=== PATIENT | male | born 1980 | race Caucasian/White ===

== ENCOUNTER 2019-04-07 08:41 | Inpatient (IN) | payer BC ==
[~2019-04-07] VITALS: Ht 175.3 cm; Wt 99.8 kg
[2019-04-07 08:43] VITALS: Ht 175.3 cm; Wt 99.8 kg
--- NOTE | 2019-04-07 08:47 | NUR ---
AGENCY DOCUMENTATION DONE BY Staff Name/Title - : TANVI DUMONT JR/KERVIN REGEN Energy User ID - : [id number] Agency Name - : [employer] Time Documented - From - : 699 To - : 1929
[2019-04-07 09:04] LABS: BASOPHIL % 0.3 % (0-2); PLATELET COUNT 227 x10^3mcL (130-400)
--- NOTE | 2019-04-07 09:07 | NUR ---
ASSUMED PATIENT CARE, NURSING ASSESSMENT COMPLETED. SEEN AND EVALUATED BY ALEX MORROW COMPLETED.
[2019-04-07 09:15] LABS: CALCIUM 8.7 mg/dL (8.5-10.1); CARBON DIOXIDE 29.6 mmol/L (21-32); CHLORIDE SERUM 103 mmol/L (98-107); CREATININE SERUM 1.3 mg/dL (0.7-1.3); GFR1 > 60 mL/min; GLUCOSE SERUM 123 mg/dL (74-106); POTASSIUM SERUM 3.8 mmol/L (3.5-5.1); SODIUM SERUM 141 mmol/L (136-145)
[2019-04-07 09:19] LABS: ALKALINE PHOSPHATASE 84 U/L (46-116); ALT/SGPT 86 U/L (16-63); AST/SGOT 35 U/L (15-37); BILIRUBIN DIRECT 0.14 mg/dL (0.0-0.2); BILIRUBIN TOTAL 0.7 mg/dL (0.20-1.00); LIPASE 120 IU/L (73-393); TOTAL PROTEIN, SERUM 7.6 g/dL (6.4-8.2)
--- NOTE | 2019-04-07 09:33 | NUR ---
URINE SPECIMEN SENT TO LAB.
[2019-04-07 10:10] LABS: UA SPECIFIC GRAVITY >=1.030 (1.005-1.035); microscopic required? YES; urine erythrocyte 3+ (NEGATIVE)
--- NOTE | 2019-04-07 11:56 | NUR ---
TO CT VIA [facility].
--- NOTE | 2019-04-07 14:54 | NUR ---
DISPO AND MEDICAL DECISION MAKING, INPATIENT ADMISSION FOR FURTHER MANAGEMENT. PATIENT CARE REPORT TO JOSÉ GALEANA, CONTINUITY OF CARE ENDORSED. PATIENT UPDATED ACCORDINGLY. VS WNL.
--- NOTE | 2019-04-07 14:56 | NUR ---
REPORT TAKEN FROM ER NURSE TANVI, ROOM PREP COMPLETE, PENDING PATIENT ARRIVAL.
[2019-04-07 14:59] LABS: AMPHETAMINE QUAL UR NONE DETECTED (See below)
[2019-04-07 15:55] VITALS: BP 127/63
--- NOTE | 2019-04-07 19:35 | NUR ---
RECEIVED PT LAYING IN BED WATCHING TV, NO ACUTE DISTRESS OBSERVED. DENIES PAIN OR DISCOMFORT AT THIS TIME. PT WITH R SIDE KIDNEY STONE, C/O INTERMITTENT R FLANK PAIN, DENIES AT THIS TIME. VOIDS URINE FREELY. AA/OX4, ABLE TO MAKE NEEDS KNOWN, SPEECH CLEAR AND APPROPRIATE. MED-SURG, NO TELE, NO CP. PULSES PALPABLE AND EQUAL, NO EDEMA. BREATHING ON RA, EVEN AND UNLABORED, NO SOB OR DYSPNEA, LUNGA CTA. DENIES N/V/D. AMBULATORY AND ABLE TO REPOSITION SELF IN BED. IV TO RAC IN PLACE, DRY, PATENT, INTACT, AND INFUSING IVF WELL, NO S&S PHLEBITIS OR INFILTRATION NOTED. COMFORT AND SAFETY MEASURES IN PLACE. ALL NEEDS ASSESSED AND ATTEDNED TO. CALL LIGHT WITHIN REACH. WILL CONTINUE TO MONITOR
--- NOTE | 2019-04-07 19:35 | NUR ---
REPORT GIVEN TO WHEEL ALIGNMENT TECHNICIAN NURSE, CARE ENDORSED
[2019-04-07 20:27] VITALS: BP 102/50
--- NOTE | 2019-04-07 20:51 | NUR ---
DR. RETANA MADE AWARE OF PT'S UA WITH MANY BUDDING YEAST. WILL ANTICIPATE FUTHER ORDERS
--- NOTE | 2019-04-07 23:27 | NUR ---
PT C/O 01/31O R FLANK PAIN. MEDICATED WITH TORADOL ORDERED. PT AMBULATED TO BATHROOM AND BACK TO BED WITHOUT INCIDENT. CALL LIGHT WITHIN REACH. WILL CONTINUE TO MONITOR
[2019-04-08 05:47] VITALS: BP 127/69
--- NOTE | 2019-04-08 06:01 | NUR ---
NO SIGNIFICANT CHANGES TO REPORT, PT COMPLIED WITH NURSING CARE THROUGHOUT THE SHIFT WITH NO ACUTE EVENTS OVERNIGHT. NO ACUTE DISTRESS OBSERVED AT THIS TIME, PT LAYING IN BED, BREATHING EVEN AND UNLABORED. COMFORT AND SAFETY MEASURES MAINTAINED. ALL NEEDS ASSESSED AND ATTENDED TO. CALL LIGHT WITHIN REACH. WILL CONTINUE TO MONITOR AND ENDORSE CARE TO DAY SHIFT NURSE
--- NOTE | 2019-04-08 06:22 | NUR ---
DR. BEAR MADE AWARE OF PT'S UA, MANY BUDDING YEAST.
[2019-04-08 07:01] LABS: CALCIUM 7.9 mg/dL (8.5-10.1); CARBON DIOXIDE 28.8 mmol/L (21-32); CHLORIDE SERUM 107 mmol/L (98-107); GFR1 > 60 mL/min; GLUCOSE SERUM 101 mg/dL (74-106); MAGNESIUM 1.7 mg/dL (1.8-2.4); PHOSPHOROUS 3.9 mg/dL (2.5-4.9); POTASSIUM SERUM 3.9 mmol/L (3.5-5.1); SODIUM SERUM 142 mmol/L (136-145)
[2019-04-08 07:02] LABS: BASOPHIL % 0.3 % (0-2); PLATELET COUNT 199 x10^3mcL (130-400); RED CELL DISTRIBUTION WIDTH 12.8 % (11.5-14.5)
--- NOTE | 2019-04-08 08:00 | NUR ---
RECEIVED PATIENT AWAKE AND ALERT AND ORIENTED TIMES FOUR. IV INTACT AND PATIENT CONTINUED ON IV FLUIDS ORDERED. PATIENT HAS BEEN GIVEN HIS FLOWMAX AND HIS HYPERTENSION MEDICATIONS WELL. AT THIS TIME HE DENIES ANY PAIN TO THE ABDOMEN. PATIENT HAS BEEN HAVING A HEADACHE AND OFFERED HIS CHOICES AND WANTS TYLENOL AND GAVE INDICATED. PATIENT HAS VITALS AT THIS ITME AT 98.5, 79, 18, 127/69, 97% ON ROOMA IR. PATIENT IS AMBULATORY AND PATIENT AHS NOTED LASB OF MAGNESIUM AT 1.7,. CA AT 7.9. DIMITRIOS BECKFORD NOTED CALCULI IN THE RIGHT URETER AND HAS MEASURED AT 2MM PATIENT AHS MILD HYDRONEPHROSIS AND HAS NOED BLODO, LEUKOCYTES, WBC AND BACTERIA IN THE URINE WELL MUCUS AND YEAST. ISIAH S ANOTHER ULTRASOUND ORDERED AND WILL DISCUSS WITH THE RSIDENT ON WHETHER THEY WANT OF NOT HE HAS ONE YESTERDAY.
[2019-04-08 09:27] VITALS: BP 127/58
--- NOTE | 2019-04-08 11:22 | NUR ---
SPOKE WITH THE RESIDENT AND PATIENT HAD NOT URINATED THIS AM AND THAT IS WHY THE ULTRASOUND WAS ORDERED. SPOKE WITH THE PATIENT HAS HE STATES HE HAS URINATED ALOT AND THE ULTRASOUND WAS THEN DISCONTINUED. TYLENOL GIVEN AND WILL MONITOR FOR EFFECTIVENESS.
--- NOTE | 2019-04-08 13:44 | NUR ---
STRAINING URINE INDICATED. WILL MONITOR FOR ANY STONES OR SEDIMENT INDICATED. PATIENT HAS NO COMPLAINTS OF PAIN AT THIS TIME.
--- NOTE | 2019-04-08 16:41 | NUR ---
THE LAST TORADOL WAS EFFECTIVE FOR PAIN AND PATIENT IS RESTING QUIETLY AT THIS TIME. STAINING ALL URINE INEDICATED. WILL CONTINUE TO MONITOR.;
[2019-04-08 17:12] VITALS: BP 112/61
--- NOTE | 2019-04-08 20:00 | NUR ---
[facility] NO SOB V/S STABLE,IV INFUSING WELL WITH TE SITE PATENT AND INTACT,KEPT CLEAN AND DRY TO TOUCH,KEPT CLEANAN DRY TO TOUCH AND WILL CONTINUE TO MONITOR.
[2019-04-08 21:44] VITALS: BP 119/63
[2019-04-09 05:35] VITALS: BP 108/60
[2019-04-09 06:36] LABS: CARBON DIOXIDE 26.6 mmol/L (21-32); CHLORIDE SERUM 107 mmol/L (98-107); CREATININE SERUM 0.9 mg/dL (0.7-1.3); GFR1 > 60 mL/min; GLUCOSE SERUM 100 mg/dL (74-106); PHOSPHOROUS 3.9 mg/dL (2.5-4.9); SODIUM SERUM 141 mmol/L (136-145)
--- NOTE | 2019-04-09 06:39 | NUR ---
PT HAD A RESTING NIGHT NO CHANGE AT THIS TIME.WILL CONTINUE TO MONITOR.
[2019-04-09 06:41] LABS: BASOPHIL % 0.3 % (0-2); PLATELET COUNT 180 x10^3mcL (130-400); RED CELL DISTRIBUTION WIDTH 12.6 % (11.5-14.5)
--- NOTE | 2019-04-09 07:20 | NUR ---
RECIEVED PT RESTING IN BED WITH NO C/O PAIN OR DISTRESS NOTED. NS 100ML/HR RUNNING, IV INTACT AND PATENT WITH NO REDNESS OR INFLAMMATION NOTED. SAFETY PRECAUTIONS IN PLACE, CALL LIGHT WITHIN REACH, WILL MONITOR.
[2019-04-09 09:19] VITALS: BP 119/59
--- NOTE | 2019-04-09 12:01 | NUR ---
PT STABLE WITH NO C/O PAIN OR DISTRESS. FAMILY AT BEDSIDE. SAFETY PRECAUTIONS IN PLACE, CALL LIGHT WITHIN REACH, WILL MONITOR.
[2019-04-09] MEDS ORDERED: LEVAQUIN750 MG PO (12:52)
[2019-04-09] MEDS ORDERED: DIFLUCAN150 MG PO (12:52)
[2019-04-09] MEDS ORDERED: ZES5 PO (12:52)
[2019-04-09] MEDS ORDERED: TOR10 PO (12:52)
[2019-04-09 13:35] VITALS: BP 119/59
--- NOTE | 2019-04-09 15:00 | NUR ---
NORCO GIVEN PER EMAR FOR C/O BACK PAIN, WILL REASSESS.
--- NOTE | 2019-04-09 16:35 | NUR ---
PT STABLE TO DISCHARGE PER MD ORDER. ALL DISCHARGE INSTRUCTIONS, EDUCATION, AND PRESCRIPTIONS GIVEN TO PT AND HE VERBALIZES UNDERSTANDING. ALL CARES TOLERATED WELL. VS WNL. NO DISTRESS OR PAIN UPON LEAVING. IV REMOVED WITH CATHETER INTACT. ID BAND REMOVED. PT ESCORTED DOWN TO LOBBY WITH COMPUTER SCIENCE TEACHER AND . ALL PERSONAL BELONGINGS IN HAND.
== END 2019-04-09 16:35 | disposition home or self-care (01) | DRG 871 ==
LOC: ED 08:41 → MU 14:06
PROVIDERS: Student in an Organized Health Care Education/Training Program; ADMIT Internal Medicine
DX: A41.9 Sepsis, unspecified organism (principal); N17.0 Acute kidney failure with tubular necrosis; N13.6 Pyonephrosis; I10 Essential (primary) hypertension; Z90.49 Acquired absence of other specified parts of digestive tract
CPT/HCPCS: G0378; J0696; J1450; J1885; J2270; J2405; J7030; Q0092